=== PATIENT | male | born 1995 | race American Indian/Alaskan Native ===

== ENCOUNTER 2016-11-11 00:15 | Emergency (ER) ==
[2016-11-11 00:29] VITALS: BMI 27.4
[2016-11-11 00:49] LABS: FLU INTERNAL QC INTERNAL QC VALID; RAPID FLU A NEGATIVE (NEGATIVE); RAPID FLU B NEGATIVE (NEGATIVE)
--- NOTE | 2016-11-11 01:11 | ED.PDOC ---
General ED Provider: Dr. JERICA MAIN-ER Chief Complaint: Cough Stated Complaint: im coughing up[ green stuff and i have a rash for several weeks Time Seen by Physician: 00:20 Mode of Arrival: Walk-In Information Source: Patient Exam Limitations: No limitations Nursing and Triage Documentation Reviewed and Agree: Yes Respiratory Complaint Exam - Respiratory Complaint/Exam Onset/Duration: several weeks Symptoms Are: Still present Timing: Constant Initial Severity: Mild Current Severity: Mild Location: Chest Character: Reports: Productive cough Aggravating: Reports: URI Alleviating: Reports: None Associated Signs and Symptoms: Reports: URI, Nasal congestion, Sore throat. Denies: Rapid breathing, Dyspnea, Fever, Chills, Chest pain, Pleuritic chest pain, Wheezing, Hemoptysis, Dizziness, Calf pain, Calf swelling, Edema, Hoarseness, Sinus discomfort, Vomiting, Weight loss, Decreased oral intake, Increased thirst, Increased appetite, Increased urination Related History: Reports: Similar episode History of Healthcare-Acquired Pneumonia: No Related Surgical History: Reports: None Cardiac Risk Factors: Reports: None Pseudomonas Risk Factors: Reports: None Tuberculosis Risk Factors: Reports: None Status Asthmaticus Risk Factors: Reports: None Home Oxygen Use: No Recent Stress Test: No Recent Echo/LV Function: No Current Antibiotic Use: No Current Asthma Medication Use: No Respiratory Distress: None Inadequate Respiratory Effort: No Dysphagia Present: No Stridor Present: No JVD Present: No Accessory Muscle Use: No Retractions: Not Present Diminished Breath Sounds: No Sinus Tenderness: None Grunting Respirations: No Kussmaul Respirations: No Differential Diagnoses: Bronchitis, URI Review of Systems - Review Of Systems Constitutional: Reports: No symptoms Eyes: Reports: No symptoms Ears, Nose, Mouth, Throat: Reports: No symptoms Respiratory: Reports: No symptoms, Cough Cardiac: Reports: No symptoms GI: Reports: No symptoms : Reports: No symptoms Musculoskeletal: Reports: No symptoms Skin: Reports: No symptoms Neurological: Reports: No symptoms Endocrine: Reports: No symptoms Hematologic/Lymphatic: Reports: No symptoms All Other Systems: Reviewed and Negative Past Medical History - Past Medical History Endocrine: Reports: Unknown Cardiovascular: Reports: Unknown Respiratory: Reports: Unknown Hematological: Reports: Unknown Gastrointestinal: Reports: Unknown Genitourinary: Reports: Unknown Neuro/Psych: Reports: Unknown Musculoskeletal: Reports: Unknown Cancer: Reports: Unknown - Surgical History General Surgical History: Reports: Unknown - Family History Family History: Reports: Unknown - Social History Smoking Status: Vaping Hx Substance Use: No Alcohol Screening: None Lives: With family - Immunizations Tetanus Shot up to Date: (UNKNOWN) Physical Exam - Physical Exam Appearance: Well-appearing, No pain distress, Well-nourished Eyes: SRINIVASA, EOMI, Conjunctiva clear ENT: Ears normal, Nose normal, Oropharynx normal Neck: Supple Respiratory: Airway patent Cardiovascular: RRR GI/: Soft, Nontender, No masses, Bowel sounds normal, No Organomegaly Musculoskeletal: Normal strength Skin: Warm, Dry, Normal color (noted brownish placque rash confluent over back and chest) Neurological: Sensation intact, Motor intact, Reflexes intact, Cranial nerves intact, Alert, Oriented Psychiatric: Affect appropriate Critical Care Note - Critical Care Note Total Time (mins): 0 Course - Course Orders, Labs, Meds: Lab Review 11/11/16 00:30 Influenza A (Rapid) Negative Influenza B (Rapid) Negative Orders Category Date Time Status MOLECULAR GROUP A STREP Stat LAB 11/11/16 00:30 Results RAPID FLU A/B Stat LAB 11/11/16 00:30 Completed RAPID STREP SCREEN [STREP SCREEN] Stat LAB 11/11/16 00:30 Results Vital Signs: Temp Pulse Resp BP Pulse Ox 11/11/16 00:17 98.8 F 69 16 129/79 99 Departure - Departure Time of Disposition: 01:12 Disposition: HOME SELF-CARE Discharge Problem: Bronchitis, Tinea versicolor Instructions: Acute Bronchitis (ED) Condition: Good Pt referred to PMD for follow-up: Yes Additional Instructions: augmentin 875mg bid x 7days--nizoral cream apply q daily x 14 days=--recheck with supervisor malted milk next week Allergies/Adverse Reactions: Allergies No Known Drug Allergies Adverse Reaction (Verified 11/11/16 00:26) Home Medications: Ambulatory Orders 1 [No Reported Medications] 11/11/16 Disposition Discussed With: Patient
[2016-11-11 01:31] VITALS: BP 121/63; TEMP 98.4
== END 2016-11-11 01:19 | disposition home or self-care (01) ==
LOC: ED 00:15
DX: J20.9 Acute bronchitis, unspecified (principal); B36.0 Pityriasis versicolor
CPT/HCPCS: 87651; 87804; 87880; 99283

== ENCOUNTER 2017-02-19 19:52 | Emergency (ER) ==
[2017-02-19 19:53] VITALS: BMI 27.4
[2017-02-19 20:03] VITALS: BP 123/74; TEMP 98.5
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
[2017-02-19] MEDS ORDERED: MOTRIN PO STA (20:17)
== END 2017-02-19 20:52 | disposition home or self-care (01) ==
LOC: ED 19:52
DX: M54.9 Dorsalgia, unspecified (principal); V49.9XXD Car occupant (driver) (passenger) injured in unspecified traffic accident, subsequent encounter
CPT/HCPCS: 99282